=== PATIENT | male | born 1970 | race African-American/Black ===

== ENCOUNTER → 2017-04-22 | Outpatient (CLI) | payer MEDICAID | LOC: M OUTALCOH 07:41 | DX: Z13.9 Encounter for screening, unspecified (principal); F10.10 Alcohol abuse, uncomplicated ==

== ENCOUNTER 2023-11-12 19:32 | Emergency (ER) | payer MEDICAID, SELFPAY ==
[~2023-11-12] VITALS: Ht 170.2 cm; Wt 113.0 kg
[2023-11-13] MEDS: BACITRACIN OINTMENT 30GM TUBE TOP STA (07:09)
[2023-11-13] MEDS: LIDOCAINE 2% MDV 20ML VIAL SC ONE (07:09)
[2023-11-13 07:56] VITALS: BP 155/82; TEMP 96.5; O2SAT 98
== END 2023-11-13 08:10 | disposition home or self-care (01) ==
LOC: M ED 19:32
DX: S65.212A Laceration of superficial palmar arch of left hand, initial encounter (principal); Y92.9 Unspecified place or not applicable; Y93.9 Activity, unspecified; Y99.0 Civilian activity done for income or pay; K21.9 Gastro-esophageal reflux disease without esophagitis; F10.10 Alcohol abuse, uncomplicated